=== PATIENT | female | born 1940 ===

== ENCOUNTER → 2019-02-23 | Day surgery (SDC) | payer MEDICARE, BC ==
[~2019-02-23] MED LIST: Atenolol TAB* 25 MG PO SCH; Benzocaine/Butamben/Tetracain (CETACAINE - SINGLE USE) 5 gm TOPICAL ONE; Buffered Lidocaine 1% SYRIN* 1 ML/SYRINGE INTRADERM ONE; Dexamethasone IV* 4 MG/ML 1 ML (4 MG) IV SLOW PU ONE; Dexamethasone IV* 4 MG/ML 1 ML (4 MG) ONE; Famotidine IV* 10 MG/ML 2 ML (20 mg) IV ONE; Famotidine IV* 10 MG/ML 2 ML (20 mg) ONE; Labetalol IV* 5 MG/ML 20 ML VIAL ONE; Lactated Ringers 1000 ML Bag* 1,000 ML IV SCH; Levalbuterol 0.63MG/3ML NEB* UNIT OF USE INH ONE; Lidocaine 2% PF * 5 ML VIAL ONE; Midazolam* 1 MG/ML 2 ML VIAL (2 MG) ONE; Ondansetron INJ* 2 MG/ML VIAL ONE; Propofol* 10 MG/ML 20 ML BTL ONE; fentaNYL* 50 MCG/ML 2 ML VIAL (100 MCG VIAL) ONE
--- NOTE | 2019-02-23 14:36 | CONS ---
CC: Dr. Chester Thorne; Dr. Alee Jauregui; Anesthesia * CARDIOLOGY CONSULTATION: DATE OF CONSULT: 02/23/19 [facility] REASON FOR CONSULT: Rapid heart beat and preoperative evaluation. HISTORY OF PRESENT ILLNESS: Ms. Stallings is a 78-year-old woman who is an active smoker with a lung nodule, who is scheduled for EBUS today with Dr. Jauregui. I saw her in the presence of Dr. Jauregui and Dr. Hernandez, and she was felt to be in sinus rhythm preoperatively. They took her to the operating room and she had a rapid rhythm without clear P waves at 150 beats a minute on the monitor. They are not able to either show me or print these strips and she was brought back to the preop area. The patient admits to occasional awareness of rapid heart beats or palpitations. She admits to being very anxious as well. She denies chest pain, pressure, heaviness, or any increase in her shortness of breath now or when taken to the operating room. PAST MEDICAL HISTORY: 1. The patient has a past medical history of lung mass in the left upper lobe and lingular segments and evidence of an endobronchial lesion. 2. Pleural effusion, left side. 3. Peripheral vascular disease (carotid stenosis). 4. Hypertension. 5. Type 2 diabetes. 6. Dyslipidemia. 7. Hypothyroid disease. 8. 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 MEDICATIONS: Current outpatient medications include: 1. Diovan 160 mg b.i.d., uncertain true dose as it also lists valsartan 160 mg a day. 2. Synthroid 50 mcg a day. 3. Metformin 750 mg a day. 4. Tylenol p.r.n. 5. Aspirin 81 mg a day. 6. Glucotrol 5 mg a day. ALLERGIES: Include AUGMENTIN, STATINS, NEURONTIN, WELCHOL, and ZOLOFT. FAMILY HISTORY: Positive for coronary artery disease, stroke, diabetes. SOCIAL HISTORY: The patient is an active smoker, she smokes about 4 to 5 cigarettes a day. She has a 55-year history of smoking. No history of alcohol or recreational drug abuse. No significant caffeine intake. REVIEW OF SYSTEMS: Admits to shortness of breath, coughing. Denies orthopnea or PND. Admits to occasional racing of the heart. No recent fevers, chills, or sweats. Has some recent leg swelling. She denies chest pain, pressure, or heaviness. She denies recent syncope or near syncope. All other 11-point review of systems was negative. PHYSICAL EXAM: On exam, the patient was in sinus tachycardia at 102 beats a minute, blood pressure 136/74, O2 sat 99% on nasal cannula. General Appearance : Frail, elderly woman, lying at 20 to 30 degrees, appearing a little anxious but does not appear in medical distress. Psychologically pleasant, cooperative , and admits to being nervous. Neurologically, she is hard of hearing. Otherwise, cranial nerves intact. She moves extremities well. Follows commands. Speech is articulate. No gross sensory or motor deficits. HEENT: Mucous membranes moderately moist. Neck: Strong carotid pulses 3+. I did not appreciate bruits. Breath sounds distant anteriorly and laterally. Diminished breath sounds in the left base posteriorly. Coronary: S1, S2, regular. Tachycardic. I did not appreciate murmurs. Abdomen: Active bowel sounds, soft , no hepatomegaly. Lower extremities showed trace to mild edema. DIAGNOSTIC STUDIES/LAB DATA: A 12-lead ECG today shows normal sinus rhythm, 102 beats a minute, QRS axis of -30. Normal AV and IV conduction times. Normal ST segments. Q-wave complexes leads III and aVF, variant of normal versus old infarction. Imaging was done at other facilities and not in our chart. Labs: No labs available in the [facility] chart. Point of care glucose was 211. Labs not dictated in the H and P from 02/18/19 available to me. No old EKGs available for me to compare either. IMPRESSION AND PLAN: In summary, Taylor Stallings is a 78-year-old woman, actively smoking with a lung mass, as above scheduled for EBUS, who became very tachycardic when taken to the OR with concerns on Anesthesia's part about a junctional tachycardia or possible atrial fibrillation/flutter. Currently, the patient is in sinus rhythm with PAC's/atrial bigeminy and I have no rhythm strips to document the event in the OR. Overall as the patient is hemodynamically stable and at her prior baseline now, if atrial fibrillation or flutter is the concern then I recommend proceeding with the procedure and consider giving anxiolytics before taking her back. An antiarrhythmic work up will take some time, so potential delay of care needs to be considered as well. I do not feel she needs a stress test preprocedure as her EKG does not show evidence of acute ischemia nor does she complain of angina or anginal equivalent today. The patient is a moderate- to-high risk patient for a mild-to -moderate risk procedure. For the possibility of paroxysmal atrial fibrillation/flutter, she is at high risk for this with her significant smoking history and we could continue to monitor perioperatively. If able use monitoring intraoperatively that we could save the strip to review later. Discussions with anaesthesia included lack of preoperative ECG's and labs. Per anaesthesia these aren't required in low risk procedures of which EBUS was included, but they do not consider this a low risk procedure. The decision was made to cancel the procedure today. An echo will be obtained today and labs. As an outpatient, we can get a Holter monitor and/or event monitor and she can undergo further outpatient cardiac workup as well. She does have risk of coronary artery disease with her history of smoking, diabetes, hypertension, dyslipidemia, and known peripheral vascular disease of the carotids. ADDENDUM: labs revealed low sodium: 126, this could contribute to ectopy. Differential of SIADH, paraneoplastic syndrome and more and should be evaluated and corrected. Echo showed a focal wall motion abnormality at the base of the inferior wall, EF 45-50%, mild RV hypokinesis and good valve function. The patient is following up with mn 02/25/19 8 AM. [id number]/[facility] #: [id number] MTDFrancisco
[2019-02-23 14:50] VITALS: BP 147/81
[2019-02-23 14:57] LABS: Hematocrit 35 % (35-47); Hemoglobin 11.9 g/dL (12.0-16.0); Mean Corpuscular HGB Conc 34 g/dL (31-36); Mean Corpuscular Hemoglobin 30 pg (27-31); Mean Corpuscular Volume 90 fL (80-97); Mean Platelet Volume 7.9 fL (7.4-10.4); Platelet Count 367 10^3/uL (150-450); Red Blood Count 3.93 10^6 /uL (3.70-4.87); Red Cell Distribution Width 15 % (10-15); White Blood Count 11.4 10^3/uL (3.5-10.8)
[2019-02-23 15:11] LABS: Blood Urea Nitrogen 15 mg/dL (6-24); CO2 Carbon Dioxide 22 mmol/L (22-32); Calcium 9.6 mg/dL (8.6-10.3); Chloride 98 mmol/L (101-111); EGFR African American 90.7 (>60); EGFR Non-African American 74.9 (>60); Glucose 212 mg/dL (70-100); Phosphorus 2.4 mg/dL (2.5-5.0); Sodium 126 mmol/L (135-145)
[2019-02-23 15:14] LABS: Anion Gap 6 mmol/L (2-11)
--- NOTE | 2019-02-23 21:40 | ECHO ---
*[facility]* [place] [address] Fax #: [phone] Transthoracic Echocardiogram Patient: Taylor Stallings : 1940 Study Date: 02/23/2019 Age: 78 Gender: F HR: 74 bpm Height: 60 in /152.4 cm BSA: 1.37 m^2 Weight: 95.8 lb /43.5 kg BMI: 18.7 kg/m^2 *Presiding Steward: * Jami Flores [facility] *Referring Physician: * Oxana Scott MD *Reading Physician: * Oxana Scott MD Indications: Abnormal EKG. History: Lung mass, pleural effusion. Carotid atherosclerosis. Risk factors: Current tobacco use. Hypertension. Diabetes mellitus. Dyslipidemia. Conclusions Summary: - Left ventricle: Wall thickness is mildly to moderately increased. The estimated ejection fraction is 45-50%. Hypokinesis of the basal-midinferior myocardium. Doppler parameters are consistent with elevated ventricular end-diastolic filling pressure. - Right ventricle: Systolic function is mildly reduced. - Mitral valve: There is mild regurgitation. - Tricuspid valve: There is trace regurgitation. - Aortic arch: The aortic arch is appears normal size and calcified. - Pericardium, extracardiac: There is a right pleural effusion and a left pleural effusion. - Pulmonary arteries: Systolic pressure can not be accurately estimated. - No prior echocardiogram to compare. Study data: Transthoracic echocardiogram. Procedure: Transthoracic echocardiography was performed. Image quality was fair. Complete 2D, spectral Doppler, and color flow Doppler. Location: Recovery room. Patient status: Outpatient. Patient room number: 13. Rhythm: Normal sinus rhythm with PAC's. Findings Left ventricle: The cavity size is normal. Wall thickness is mildly to moderately increased. Systolic function is mildly reduced. The estimated ejection fraction is 45-50%. Regional wall motion abnormalities: Hypokinesis of the basal-midinferior myocardium. Doppler parameters are consistent with abnormal left ventricular relaxation (grade 1 diastolic dysfunction). Doppler parameters are consistent with elevated ventricular end-diastolic filling pressure. Right ventricle: The cavity size is normal. Systolic function is mildly reduced. Left atrium: The atrium is mildly dilated. Right atrium: The atrium is normal in size. Mitral valve: The Mitral valve annulus appears calcified. The leaflets are mildly thickened. There is no evidence of stenosis. There is mild regurgitation. Aortic valve: The leaflets are mildly thickened. There is no evidence of stenosis. There is no significant regurgitation. Tricuspid valve: The leaflets are normal thickness. There is no evidence of stenosis. There is trace regurgitation. Pulmonic valve: Not well visualized. There is no significant regurgitation. Aorta: Aortic root: The aortic root is appears normal. Ascending aorta: The ascending aorta is poorly visualized. Aortic arch: The aortic arch is appears normal size and calcified. Pericardium: There is no significant pericardial effusion. There is a right pleural effusion and a left pleural effusion. Pulmonary arteries: Not well visualized. Systolic pressure can not be accurately estimated. Systemic veins: Inferior vena cava: The vessel is dilated. There is (>= 50%) respiratory change in the IVC dimension. Measurements Left ventricle Value Ref Aortic valve continued Value Ref AASHISH, LAX 3.8 cm 3.8 - 5.2 VTI, S 19.1 cm ----- ESD, LAX 2.7 cm 2.2 - 3.5 Mean grad, S 3.0 mm Hg ----- FS, LAX 31 % 27 - 45 Peak grad, S 5.0 mm Hg ----- PW, ED, LAX (H) 1.4 cm 0.6 - 0.9 EF 59 % 54 - 74 Mitral valve Value Ref E', lat mehul, TDI (L) 6.7 cm/sec >=10.0 Peak E 0.83 m/sec - ---- E/e', lat mehul, 12 Peak A 1.11 m/sec ---- - TDI Decel time 145 ms ----- E', med mehul, TDI (L) 4.0 cm/sec >=7.0 PHT 82 ms - ---- E/e', med mehul, 21 Mean grad, D 2.0 mm Hg ---- - TDI Peak grad, D 5.0 mm Hg ----- E', avg, TDI 5.4 cm/sec Peak E/A ratio 0.7 ---- - E/e', avg, TDI (H) 16 <=14 MVA, PHT 2.7 cm^2 - ---- LVOT Value Ref Pulmonic valve Value Ref Peak albertina, S 0.57 m/sec Peak v, S 0.67 m/sec ----- Mean grad, S 1 mm Hg Peak grad, S 2.0 mm Hg ----- Ventricular septum Value Ref Tricuspid valve Value Ref IVS, ED (H) 1.3 cm 0.6 - 0.9 TR peak v 2.32 m/sec <=2.8 Peak RV-RA grad, S 22 mm Hg ----- Right ventricle Value Ref AASHISH minor ax, A4C 2.1 cm 1.9 - 3.5 Aortic root Value Ref mid Root diam 3.3 cm <3.7 Pressure, S 30 mm Hg Aortic arch Value Ref Left atrium Value Ref Arch diam 1.9 cm ----- AP dim, ES 3.50 cm 2.70 - 3.80 Decending aorta Value Ref ML dim, A4C 3.3 cm Megan peak albertina 0.58 m/sec ----- SI dim, A4C 5.4 cm Vol/bsa, ES, A/L 33 ml/m^2 16 - 34 Pulmonary artery Value Ref Pressure, S 28.0 mm Hg ----- Right atrium Value Ref SI dim, ES 3.9 cm 3.4 - 5.3 Inferior vena cava Value Ref ML dim, ES, A4C 3.4 cm 2.6 - 4.4 Diam 2.2 cm ----- Estimated RAP 8 mm Hg Aortic valve Value Ref Mehul diam, ED 2.1 cm Peak v, S 1.13 m/sec Legend: (L) and (H) [place] values outside specified reference range. Prepared and electronically signed by Oxana Scott MD 02/23/2019 21:39
--- NOTE | 2019-02-24 16:48 | PN ---
Progress Note - Progress Note Date of Service: 02/23/19 - Progress note Note: Pt scheduled for bronchoscopy/EBUS under [place] Pt had irregular heart ryhthm while on monitor with SVT on rhythm strip with c/ o dizziness. Pt with tachycardia and subsequently converted to sinus. Procedure was cancelled. Cardiology was consulted. Pt had 12 lead EKG and ECHO. Pt to be rescheduled when stable
== END | disposition home or self-care (01) ==
LOC: OR 11:16
PROVIDERS: ATTEND Internal Medicine
DX: J98.4 Other disorders of lung (principal); R91.1 Solitary pulmonary nodule; I47.1 Supraventricular tachycardia; R42 Dizziness and giddiness; Z53.09 Procedure and treatment not carried out because of other contraindication; R05 Cough; J98.11 Atelectasis; E03.9 Hypothyroidism, unspecified; I10 Essential (primary) hypertension; E78.5 Hyperlipidemia, unspecified; E11.9 Type 2 diabetes mellitus without complications; Z79.84 Long term (current) use of oral hypoglycemic drugs; Z72.0 Tobacco use
CPT/HCPCS: 36415; 80048; 84100; 85027; 93306; J1100; J2250; J2405; J2704; J3010

== ENCOUNTER 2019-02-24 23:28 | Emergency (ER) | payer MEDICARE, BC ==
--- OUTSIDE RECORDS SUMMARY | 2019-02-24 23:46 | XMS REPORT | Continuity of Care Document ---
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 No Information Available Social History Type Date Description Comments Sex Unknown ETOH Use Denies alcohol use Tobacco Use Start: Unknown Patient is a current smoker, smokes every day Recreational Drug Use Denies Drug Use Tobacco Use Start: Unknown Light tobacco smoker (10 or 55 years fewer cigarettes/day) Smoking Status Reviewed: 02/18/19 Light tobacco smoker (10 or 55 years fewer cigarettes/day) Exercise Type/Frequency Does not exercise Allergies, Adverse Reactions, Alerts Active Allergies Reaction Severity Comments Date Augmentin 02/18/2019 Hydrochlorothiazide 02/18/2019 Statins 02/18/2019 Neurontin 02/18/2019 Colesevelam 02/18/2019 Zoloft 02/18/2019 Medications Active Medications SIG Qnty Indications Ordering Provider Date Diovan 1 by mouth twice Unknown 160mg Tablets a day Synthroid Take 1 Tablet By Unknown 50mcg Tablets Mouth Every Day Metformin HCL ER Take 1 Tablet By Unknown 750mg Mouth Every Day Tablets ER 24HR Tylenol 2 tablets every 4 Unknown 325mg Capsules hours as needed for pain History Medications Glucophage XR week 1 take one Alee Jauregui MD 02/18/2019 - 750mg pill daily, 02/18/2019 Tablets ER 24HR Immunizations Description No Information Available Vital Signs Date Vital Result Comment 02/18/2019 11:38am Height 60 inches 5'0" Weight 95.00 lb Heart Rate 67 /min BP Systolic Sitting 122 mmHg BP Diastolic Sitting 60 mmHg O2 % BldC Oximetry 94 % 90 with walk BMI (Body Mass Index) 18.6 kg/m2 Results Description No Information Available Procedures Description No Information Available Medical Devices Description No Information Available Encounters Type Date Location Provider Dx Diagnosis Office Visit 02/18/2019 [facility]98.4 Other disorders 12:[facility] lung [facility] R05 Cough Assessments Date Code Description Provider 02/18/2019 J98.4 Other disorders of lung Alee Jauregui MD 02/18/2019 R05 Cough Alee Jauregui MD Plan of Treatment Future Appointment(s):02/23/2019 1:00 pm - Alee Jauregui MD at [facility]02/18/2019 - Alee Jauregui MDJ98.4 Other disorders of lungNew Orders:Endobronchial Ultrasound (Ebus), Ordered: Minute Walk, Ordered: 02/18/19Follow up:1 weekR05 Cough Functional Status Description No Information Available Mental Status Description No Information Available Referrals Description No Information Available
--- NOTE | 2019-02-25 00:01 | ED ---
Shortness of Breath - HPI Summary HPI Summary: Patient is a 78 y/o F presenting to ED with complaints of SOB and exacerbated wheezing. Daughter reports that the patient has been wheezing for the past week and had a worsening of Sx today, 02/24/2019. Daughter additionally notes that the patient has had BLE edema. Patient denies pain in her legs. Daughter notes that the patient has had some dizziness the past few days as well. Daughter also states that the patient has been breathing swallowly. Patient was admitted to hospital in [place] in December for PNA. It is reported that the patient was found to have had a lung mass. There were two biopsy attempts, but both were unsuccessful. There were plans to do a bronchoscopy, but the patient had developed arrhythmias right before the patient's surgery. Her team decided not to go through with the patient's procedure as a result. She is scheduled for an appointment with cardiology tomorrow, 02/25/2019. Patient is being followed by Dr. Jauregui. Daughter notes that the patient had had issues with coughing up blood back in the winter of [id number]. There has been no such Sx with patient's current presentation, per daughter. PMHx of chronic pancreatitis is noted as well. Patient lives with daughter. On triage, pain is denied, nothing is noted to aggravate/alleviate Sx. Home medications and allergies are reviewed. - History of Current Complaint Chief Complaint: EDShortnessOfBreath Time Seen by Provider: 02/24/19 23:56 Hx Obtained From: Patient, Family/Field Manager - daughter Onset/Duration: Lasting Weeks, Still Present, Worse Since - today Current Severity: None - pain denied Aggravating Factors: Nothing Alleviating Factors: Nothing Associated Signs & Symptoms: Wheezing, Dizzy, Edema - BLE - Allergy/Home Medications Allergies/Adverse Reactions: Allergies Allergy/AdvReac Type Severity Reaction Status Date / Time amoxicillin [From Augmentin] Allergy Unknown Verified 02/26/19 02:17 Reaction Details aspirin Allergy severe gi Verified 02/26/19 02:17 upset clavulanic acid Allergy Unknown Verified 02/26/19 02:17 [From Augmentin] Reaction Details colesevelam [From WelChol] Allergy Unknown Verified 02/26/19 02:17 Reaction Details gabapentin [From Neurontin] Allergy Unknown Verified 02/26/19 02:17 Reaction Details hydrochlorothiazide Allergy Unknown Verified 02/26/19 02:17 Reaction Details sertraline [From Zoloft] Allergy Unknown Verified 02/26/19 02:17 Reaction Details Wxtdien-Ykl-Jar Reductase Allergy LOOSES Verified 02/26/19 02:17 Inhibitor HAIR, NAUSEA PMH/Surg Hx/FS Hx/Imm Hx Endocrine/Hematology History: Reports: Hx Thyroid Disease - "LOW"-ON MEDICATION FOR Cardiovascular History: Reports: Hx Coronary Artery Disease - HARDENING AROUND AORTA, Hx Hypertension - ON MEDICATION FOR, Other Cardiovascular Problems/ Disorders - MONITORING COROTID ARTERIES-DR. HERNANDEZ-PMD- [place] Respiratory History: Reports: Other Respiratory Problems/Disorders - LEFT LUNG COLLAPSED-FLUID IN LEFT LUNG GI History: Reports: Hx Gastroesophageal Reflux Disease - "BORDERLINE"-ON ORAL MEDICATION History: Denies: Other Problems/Disorders Musculoskeletal History: Denies: Other Musculoskeletal History Sensory History: Reports: Hx Cataracts - BILATERAL, Hx Contacts or Glasses - READING GLASSES Denies: Hx Hearing Aid Opthamlomology History: Reports: Hx Cataracts - BILATERAL, Hx Contacts or Glasses - READING GLASSES Neurological History: Reports: Other Neuro Impairments/Disorders - DAUGHTER REPORTS COGNITIVE ISSUES-MORE RECENTLY NOTE-LAST 6 WEEKS Psychiatric History: Reports: Hx Anxiety - HX OF- NOTED AT TIMES, Hx Depression - HX OF- NOTED AT TIMES - Surgical History Surgery Procedure, Year, and Place: 12/2018-[facility]G [facility]SIES[facility]. 2018-[facility] BIOPSIES-[facility]-TO DRAIN FLUID. TONSILLECTOMY A CHILD Hx Anesthesia Reactions: No Infectious Disease History: No Infectious Disease History: Denies: Traveled Outside the [place] in Last 30 Days - Family History Known Family History: Negative: Blood Disorder - Social History Alcohol Use: None Substance Use Type: Reports: None Smoking Status (MU): Heavy Every Day Tobacco Smoker Amount Used/How Often: 1/2 "CAL"PPD X 50+ YEARS Have You Smoked in the Last Year: Yes Review of Systems Respiratory: Other - positive - wheezing, shallow breathing; negative - coughing up blood Positive: Shortness Of Breath Musculoskeletal: Other - negative - pain in legs Positive: Edema - BLE Neurological: Other - positive - dizziness All Other Systems Reviewed And Are Negative: Yes Physical Exam - Summary Physical Exam Summary: Appearance: Well-appearing, Well-nourished, lying in bed comfortably Skin: Warm, dry, no obvious rash Eyes: Conjunctival pallor is noted; sclera anicteric ENT: mucous membranes moist, pharynx appears normal Neck: Supple, nontender Respiratory: Dullness to percussion at right chest, decreased breath sounds on the right, no signs of respiratory distress Cardiovascular: Normal S1, S2. No murmurs. Normal distal pulses in tibial and radial bilaterally. Abdomen: Soft, nontender, normal active bowel sounds present Musculoskeletal: Normal, Strength/ROM Intact Neurological: A&Ox3, awake and alert, mentation is normal, speech is fluent and appropriate Psychiatric: affect is normal, does not appear anxious or depressed Triage Information Reviewed: Yes Vital Signs On Initial Exam: Initial Vitals Temp Pulse Resp BP Pulse Ox 98.6 F 89 22 142/67 94 02/24/19 23:35 02/24/19 23:35 02/24/19 23:35 02/24/19 23:35 02/24/19 23:35 Vital Signs Reviewed: Yes Procedures - Procedure Summary Procedure Summary: After informed consent was obtained, the pt was positioned sitting on the side of the gurney and the site for thoracentesis was located using percussion. After local anesthetics, the thoracentesis needle was used to enter the chest, with adelfo clear fluid obtained, and the catheter was then advanced over the needle and the needle withdrawn, leaving the catheter in the chest. This was then connected via tubing to the evac bottles, and a total of approx 1800 cc was taken off; one bottle was sent for cytology. The patient developed some pain as the fluid was taken out and the procedure was stopped at that point, with removal of the catheter and bandage applied. Post procedure xray was unremarkable. Diagnostics - Vital Signs Vital Signs Temp Pulse Resp BP Pulse Ox 02/24/19 23:35 98.6 F 89 22 142/67 94 - Laboratory Result Diagrams: 02/25/19 00:14 02/25/19 00:14 Lab Statement: Any lab studies that have been ordered have been reviewed, and results considered in the medical decision making process. - Radiology CXR Radiology Interpretation Completed By: ED Physician Summary of Radiographic Findings: CXR showed persistent complete opacification of left hemithorax, pending official report. - EKG 2344 Cardiac Rate: NL - rate of 88 BPM EKG Rhythm: Sinus Rhythm Ectopy: PACs Summary of EKG Findings: EKG showed sinus rhythm with rate of 88 BPM, frequent PACs, no STEMI. Course/Dx - Course Course Of Treatment: Patient is a 78 y/o F presenting to ED with complaints of SOB and exacerbated wheezing. Daughter reports that the patient has been wheezing for the past week and had a worsening of Sx today, 02/24/2019. Daughter additionally notes that the patient has had BLE edema. Patient denies pain in her legs. Daughter notes that the patient has had some dizziness the past few days as well. Daughter also states that the patient has been breathing swallowly. Patient was admitted to hospital in [place] in December for PNA. It is reported that the patient was found to have had a lung mass. There were two biopsy attempts, but both were unsuccessful. There were plans to do a bronchoscopy, but the patient had developed arrhythmias right before the patient 's surgery. Her team decided not to go through with the patient's procedure as a result. She is scheduled for an appointment with cardiology tomorrow, 2018. Patient is being followed by Dr. Jauregui. On physical exam, conjunctival pallor is noted. Dullness to percussion at right chest, decreased breath sounds on the right noted as well. EKG showed sinus rhythm with rate of 88 BPM, frequent PACs, no STEMI. CXR showed persistent complete opacification of left hemithorax. Bloodwork was obtained, abnormal labs include WBC 11.2, Plt count 486, absolute neuts 9.4, absolute lymphs 0.9, absolute monos 0.9, sodium 126, chloride 95, BUN/creatinine ratio 25.9, glucose 231, CRP 88.7, BNP > 1300, albumin globulin ratio 0.9. Trop was negative. During ED course, patient received robitussin 100 mg 10 mg, 5 ml PO, and albuterol 2 puff IHN Q4H PRN. 0055 - Patient's case was discussed with Dr. Alexander Malone to evaluate for admission. 219 - After evaluation, Dr. uMnoz has decided to discharge the patient to home. - Diagnoses Provider Diagnoses: Lung cancer - Physician Notifications Discussed Care of Patient With: Rosa Munoz Time Discussed With Above Provider: 00:55 Instructed by Provider To: Other - 54 - Patient's case was discussed with Dr. Alexander Malone to evaluate for admission. 0220 - After evaluation, Dr. Munoz has decided to discharge the patient to home. Discharge ED - Sign-Out/Discharge Documenting (check all that apply): Patient Departure - discharge Patient Received Moderate/Deep Sedation with Procedure: No - Discharge Plan Condition: Fair Disposition: HOME Prescriptions: Albuterol HFA INHALER* [Ventolin HFA Inhaler*] 2 puff INH Q4H PRN #1 mdi PRN Reason: Sob/Wheezing ALPRAZolam TAB* [Xanax TAB*] 0.5 tab PO BEDTIME PRN #10 tab MDD 0.5 tab PRN Reason: Anxiety/Insomnia guaiFENesin/CODIEN 100MG-10MG* [Robitussin AC 100Mg-10Mg*] 5 ml PO Q6H PRN #100 ml MDD 20ml PRN Reason: Cough Referrals: Chester Hernandez MD [Primary Care Provider] - (Follow up in 3-5 days) Additional Instructions: 1. Keep your appointment with Dr. Scott for 02/25 at 8am. 2. Follow up with Dr. Jauregui 3. Return to the ER for any concerning issues. 4. Do NOT use the xanax and robitussin with codeine together. - Billing Disposition and Condition Condition: FAIR Disposition: Home - Attestation Statements Document Initiated by Yoshi: Yes Documenting Tyrellibe: JOSEPH DU Provider For Whom Yoshi is Documenting (Include Credential): NATACHA HERRERA MD Scribstephen Attestation: JOSEPH Griffin, scribed for NATACHA HERRERA MD on 02/26/19 at 0521. Scribe Documentation Reviewed: Yes Provider Attestation: The documentation as recorded by the JOSEPH velasco accurately reflects the service I personally performed and the decisions made by me, NATACHA HERRERA MD Status of Scrrosemary Document: Viewed
[2019-02-25 00:36] LABS: ABS Lymphocytes 0.9 10^3/ul (1.0-4.8); ABS Monocytes 0.9 10^3/ul (0-0.8); ABS Neutrophils 9.4 10^3/ul (1.5-7.7); Eosinophil % 0.1 %; Hematocrit 39 % (35-47); Lymphocyte % 8.2 %; Mean Corpuscular HGB Conc 33 g/dL (31-36); Mean Corpuscular Hemoglobin 30 pg (27-31); Mean Corpuscular Volume 90 fL (80-97); Mean Platelet Volume 7.8 fL (7.4-10.4); Platelet Count 486 10^3/uL (150-450); Red Blood Count 4.33 10^6 /uL (3.70-4.87); Red Cell Distribution Width 15 % (10-15); White Blood Count 11.2 10^3/uL (3.5-10.8)
[2019-02-25 00:56] LABS: Albumin 3.4 g/dL (3.2-5.2); Albumin/Globulin Ratio 0.9 (1-3); BUN/Creatinine Ratio 25.9 (8-20); C Reactive Protein 88.7 mg/L (<8.01); Calcium 9.8 mg/dL (8.6-10.3); EGFR African American 78.5 (>60); EGFR Non-African American 64.9 (>60); Globulin 3.7 g/dL (2-4); Potassium 4.4 mmol/L (3.5-5.0); Total Bilirubin 0.4 mg/dL (0.2-1.0); Total Protein 7.1 g/dL (6.4-8.9)
[2019-02-25 00:58] LABS: Troponin I 0.01 ng/mL (<0.04)
[2019-02-25] MEDS ORDERED: guaiFENesin/CODIEN 100MG-10MG* 5 ML UDC PO ONE (01:30)
[2019-02-25] MEDS ORDERED: Albuterol HFA INHALER* 8 gm MDI INH PRN (01:30)
[2019-02-25 02:21] VITALS: BP 155/82
--- NOTE | 2019-02-25 04:20 | CONS ---
CC: Dr. Chester Thorne; Dr. Jauregui; Dr. Scott * CONSULTATION REPORT: DATE OF CONSULT: 02/25/19 PRIMARY CARE PROVIDER: Dr. Chester Thorne. SENIOR FIRMWARE ENGINEER: Dr. Jauregui. PROFILER HAND: Dr. Scott. CHIEF COMPLAINT: Shortness of breath. HISTORY OF PRESENT ILLNESS: Ms. Stallings is a 78-year-old female who is scheduled to have an outpatient EBUS performed by Dr. Jauregui on 02/23/19. Unfortunately, when she was wheeled back to the emergency room, the patient was found have a markedly elevated heart rate. Dr. Scott was consulted and saw the patient in the preop area. Unfortunately, she did not have a telemetry strip to look at. It was felt that she may have been in atrial fibrillation versus a junctional tachycardia. It was felt that as the patient was hemodynamically stable and at her baseline, if atrial fibrillation or flutter was a concern, she could have proceeded with the EBUS. It was not felt that she needed a stress test pre-procedurally. It was felt that she would need an arrhythmia workup, but that would take some time and delay proceeding with the procedure. Ultimately, the procedure was canceled. She underwent a transthoracic echocardiogram, which revealed a focal wall motion abnormality at the base of the inferior wall with an EF of 45% to 50%, mild RV hypokinesis, and good valve function. The patient is due to follow up with Dr. Scott on at 8 a.m. On the evening of 02/24/19, however, the patient became much more short of breath than she had been. Her daughter provides the bulk of the history and states that she has been getting into these coughing fits. She was prescribed Tessalon; however, that has not helped. The patient also was noted to be wheezing. Because of the increased shortness of breath and wheezing, the patient's daughter brought her mom to the emergency room to be evaluated. In the ER, the patient was found have a mildly elevated white blood cell count of 11.2. This was essentially unchanged from 2 days ago. She also was hyponatremic with a sodium of 126, again unchanged from 2 days ago. By the time of my evaluation, the patient was resting comfortably in the stretcher. Her respiratory rate was around 20, her O2 saturation was in the mid 90s on room air, and her heart rate was 80 and in normal sinus rhythm. The patient states that she is feeling better now than when she first presented. PAST MEDICAL HISTORY: 1. Lung mass of the left upper lobe. 2. Left pleural effusion. 3. Peripheral vascular disease (carotid stenosis). 4. Hypertension. 5. Type 2 diabetes. 6. Dyslipidemia. 7. Hypothyroidism. 8. 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 MEDICATIONS: 1. Diovan 160 mg p.o. daily. 2. Metformin 750 mg p.o. daily. 3. Levothyroxine 50 mcg p.o. daily. 4. Tylenol 325 mg p.o. q.6 hours p.r.n. for pain. ALLERGIES: AUGMENTIN, STATINS, NEURONTIN, WELCHOL, and ZOLOFT. FAMILY HISTORY: Positive for coronary artery disease, stroke, and diabetes. SOCIAL HISTORY: The patient continues to smoke about 4 to 5 cigarettes per day. She has a 44-dmcd-alel history of smoking. She does not drink alcohol. Her daughter has been staying with her recently. REVIEW OF SYSTEMS: A complete 11-system review of systems is obtained. Pertinent positives and negatives are as per HPI and otherwise negative. PHYSICAL EXAM: Blood pressure 142/67, pulse 89, respirations 22, temp 98.6, O2 sat 94% on room air. General: The patient is a well-developed, elderly cachectic-appearing female, lying on the stretcher, in no acute distress. Cardiac: Normal S1, S2. Regular rate and rhythm. I do not appreciate any murmurs. There is no lower extremity edema. Pulmonary: Breath sounds are markedly diminished on the left, clear to auscultation on the right. Abdomen: Bowel sounds are present. Abdomen is soft, nontender, and nondistended. Musculoskeletal: There is no cyanosis or clubbing of the digits. There is full active range of motion of all 4 extremities. Skin is warm and dry. There are no rashes. Neuro: Cranial nerves II through XII are grossly intact. Sensation is intact to light touch throughout. DIAGNOSTIC STUDIES/LAB DATA: Labs: WBC 11.2, hemoglobin 13.0, hematocrit 39, platelets 486. Sodium 126, potassium 4.4, chloride 95, CO2 of 22, BUN 22, creatinine 0.85, glucose 231, lactic acid 2.0, calcium 9.8. Bilirubin 0.4, AST 15, ALT 9, alk phos 91. Troponin 0.01. CRP 88.7. BNP greater than 1300. Chest x-ray to my interpretation reveals a large left pleural effusion that fills the entire left lung cavity. Right lung is clear. EKG reveals atrial bigeminy. There are no acute ST-T wave abnormalities. ASSESSMENT AND PLAN: Ms. Stallings is a 78-year-old female, who likely has a left lung malignancy, who needs to undergo EBUS for a formal diagnosis, who presents to the emergency room with complaints of increased shortness of breath and wheezing. At this point, the patient is now comfortable after a nebulizer treatment. In speaking with the patient and her daughter, it sounds as if they are hoping for improved symptomatic control. The patient states that she has not been sleeping well at night and previously used Xanax 0.25 mg at bedtime, which helped. The patient would be happy to have another prescription for this so she can get some rest. Additionally, the Tessalon has not been helping with the cough and we talked about utilizing Robitussin-AC. The patient is willing to try this medication to see if this helps with her cough. Unfortunately, she will continue to cough due to the very large left pleural effusion and probable endobronchial lesion. The patient also does not have an inhaler and was noted to be wheezy on the day prior to this consultation. At this point, as the patient is comfortable and I do not believe that the procedure could get arranged quickly to be performed today, I offered the patient the opportunity to be discharged home with prescription for Xanax, Robitussin-AC, and an albuterol inhaler. The patient and her daughter both agree with this plan. I have made it very clear that she is not to take both the Robitussin-AC and Xanax together. The patient's daughter will need to monitor for increased drowsiness with the use of these medications. They have been instructed to return to the emergency room if she has any dramatic worsening of her shortness of breath. At this point, the patient is felt to be stable for discharge home from the emergency room with followup with Dr. Scott later today and with Dr. Jauregui to reschedule the EBUS. TIME SPENT: Forty-five minutes were spent on this consultation. [id number]/[facility] #: [id number] MTDD
== END 2019-02-25 02:20 | disposition home or self-care (01) ==
LOC: ED 23:28
DX: C34.90 Malignant neoplasm of unspecified part of unspecified bronchus or lung (principal); J90 Pleural effusion, not elsewhere classified; J98.11 Atelectasis; E11.9 Type 2 diabetes mellitus without complications; E07.9 Disorder of thyroid, unspecified; I25.10 Atherosclerotic heart disease of native coronary artery without angina pectoris; I10 Essential (primary) hypertension; K21.9 Gastro-esophageal reflux disease without esophagitis; F41.9 Anxiety disorder, unspecified; F32.9 Major depressive disorder, single episode, unspecified; F17.210 Nicotine dependence, cigarettes, uncomplicated; Z79.899 Other long term (current) drug therapy; Z79.84 Long term (current) use of oral hypoglycemic drugs; Z88.6 Allergy status to analgesic agent; Z88.1 Allergy status to other antibiotic agents; Z88.8 Allergy status to other drugs, medicaments and biological substances
CPT/HCPCS: 36415; 71046; 80053; 83605; 83880; 84484; 85025; 86140; 87040; 93005; 99283; A9270-GY

== ENCOUNTER 2019-02-26 01:44 | Emergency (ER) | payer MEDICARE, BC ==
--- NOTE | 2019-02-26 02:32 | ED ---
Shortness of Breath - HPI Summary HPI Summary: The patient is a 78 y/o F presenting to [facility] accompanied by daughter with a chief complaint of SOB with exertion since the morning of 02/25/2019. She reports that she was supposed to have a visit with her whistle punk at 0800 for edema in the bilateral feet and fluid building up on the left lung but was unable to move far as she quickly became short of breath, and then her appointment was rescheduled for 1500, but she was still unable to walk far enough without having difficulty breathing, fatigue, and dizziness. Before going to bed, she had an episode of coughing that was relieved with medication until she woke up with SOB again at 0230 this morning. She denies any appetite change. She also notes using her inhaler for her symptoms. She is not currently in pain. PMHx: collapse of left lung, hypothyroidism, CAD, HTN. Heavy every day smoker, no EtOH, no substance use. Medications and allergies reviewed. - History of Current Complaint Chief Complaint: EDExtremityLower Time Seen by Provider: 02/26/19 02:26 Hx Obtained From: Patient, Family/Dentist Attendant - daughter Onset/Duration: Gradual Onset, Lasting Days - since yesterday, Still Present Current Severity: Moderate Dyspnea At: Exertion Aggravating Factors: Other - ambulating Alleviating Factors: Other - rest, inhaler Associated Signs & Symptoms: Cough (Nonproductive), Edema - bilateral feet - Allergy/Home Medications Allergies/Adverse Reactions: Allergies Allergy/AdvReac Type Severity Reaction Status Date / Time amoxicillin [From Augmentin] Allergy Unknown Verified 02/26/19 02:17 Reaction Details aspirin Allergy severe gi Verified 02/26/19 02:17 upset clavulanic acid Allergy Unknown Verified 02/26/19 02:17 [From Augmentin] Reaction Details colesevelam [From WelChol] Allergy Unknown Verified 02/26/19 02:17 Reaction Details gabapentin [From Neurontin] Allergy Unknown Verified 02/26/19 02:17 Reaction Details hydrochlorothiazide Allergy Unknown Verified 02/26/19 02:17 Reaction Details sertraline [From Zoloft] Allergy Unknown Verified 02/26/19 02:17 Reaction Details Icdfwca-Tbc-Pmd Reductase Allergy LOOSES Verified 02/26/19 02:17 Inhibitor HAIR, NAUSEA PMH/Surg Hx/FS Hx/Imm Hx Endocrine/Hematology History: Reports: Hx Thyroid Disease - "LOW"-ON MEDICATION FOR Cardiovascular History: Reports: Hx Coronary Artery Disease - HARDENING AROUND AORTA, Hx Hypertension - ON MEDICATION FOR, Other Cardiovascular Problems/ Disorders - MONITORING COROTID ARTERIES-DR. HERNANDEZ-PMD- [place] Respiratory History: Reports: Other Respiratory Problems/Disorders - LEFT LUNG COLLAPSED-FLUID IN LEFT LUNG GI History: Reports: Hx Gastroesophageal Reflux Disease - "BORDERLINE"-ON ORAL MEDICATION History: Denies: Other Problems/Disorders Musculoskeletal History: Denies: Other Musculoskeletal History Sensory History: Reports: Hx Cataracts - BILATERAL, Hx Contacts or Glasses - READING GLASSES Denies: Hx Hearing Aid Opthamlomology History: Reports: Hx Cataracts - BILATERAL, Hx Contacts or Glasses - READING GLASSES Neurological History: Reports: Other Neuro Impairments/Disorders - DAUGHTER REPORTS COGNITIVE ISSUES-MORE RECENTLY NOTE-LAST 6 WEEKS Psychiatric History: Reports: Hx Anxiety - HX OF- NOTED AT TIMES, Hx Depression - HX OF- NOTED AT TIMES - Surgical History Surgical History: Yes Surgery Procedure, Year, and Place: 12/2018-[facility]ES[facility]. 2018-[facility]-TO DRAIN FLUID. TONSILLECTOMY A CHILD Hx Anesthesia Reactions: No Infectious Disease History: Yes Infectious Disease History: Denies: Traveled Outside the [place] in Last 30 Days - Family History Known Family History: Negative: Blood Disorder - Social History Alcohol Use: None Hx Substance Use: No Substance Use Type: Reports: None Hx Tobacco Use: Yes Smoking Status (MU): Heavy Every Day Tobacco Smoker Amount Used/How Often: 1/2 "CAL"PPD X 50+ YEARS Have You Smoked in the Last Year: Yes Review of Systems Positive: Fatigue Positive: Cough Positive: Other - Negative: changes in appetite Positive: Edema - bilateral feet Neurological: Other - dizziness All Other Systems Reviewed And Are Negative: Yes Physical Exam - Summary Physical Exam Summary: Appearance: Well-appearing, Well-nourished, lying in bed comfortably Skin: Warm, dry, no obvious rash Eyes: sclera anicteric, no conjunctival pallor ENT: mucous membranes moist, pharynx appears normal Neck: Supple, nontender Respiratory: dull depression on the entire left side of the chest, no significant respiratory distress Cardiovascular: Normal S1, S2. No murmurs. Normal distal pulses in tibial and radial bilaterally. Abdomen: Soft, nontender, normal active bowel sounds present Musculoskeletal: Mild edema in the dorsum of both feet not extending to the legs , Strength/ROM Intact Neurological: A&Ox3, awake and alert, mentation is normal, speech is fluent and appropriate Psychiatric: affect is normal, does not appear anxious or depressed Triage Information Reviewed: Yes Vital Signs On Initial Exam: Initial Vitals Temp Pulse Resp BP Pulse Ox 98.4 F 66 16 156/71 97 02/26/19 01:45 02/26/19 01:45 02/26/19 01:45 02/26/19 01:45 02/26/19 01:45 Vital Signs Reviewed: Yes Procedures - Procedure Summary Procedure Summary: Left-sided Thoracentesis: Diagnostics - Vital Signs Vital Signs Temp Pulse Resp BP Pulse Ox 02/26/19 01:45 98.4 F 66 16 156/71 97 - Laboratory Lab Statement: Any lab studies that have been ordered have been reviewed, and results considered in the medical decision making process. - Radiology CXR Radiology Interpretation Completed By: ED Physician Summary of Radiographic Findings: Complete white-out of the left hemithorax. ED physician has interpreted this report. Pending official report. Re-Evaluation - Re-Evaluation First Eval Re-Evaluation Time: 02:50 Comment: Patient experiencing pain following procedure; Morphine will be administered. Course/Dx - Course Course Of Treatment: Patient is a 78 y/o F accompanied by daughter with cc of gradual worsening SOB since yesterday morning especially with exertion and ambulation. Associated symptoms include dizziness, fatigue, and edema in BLE. Denies any appetite change. Hx of fluid on left lung with collapse. Supposed to go to [employer] today but was not feeling well. Upon physical exam, the patient appears to not be in significant respiratory distress despite exhibiting a dull depression on the entire left side of the chest and mild edema in the dorsum of both feet not extending to the legs. Chest xray reveals a complete white-out of the left hemithorax, per my interpretation. Left-sided thoracentesis performed with 2L of fluid drawn off (see procedure note). Patient is experiencing pain following procedure likely secondary to subsequent inflation of the left lung with noted improvement of aeration. She will be administered Morphine. She is diagnosed with left pleural effusion. Patient and her daughter understand and agree with discharge plan for continuing medication. - Diagnoses Provider Diagnoses: Pleural effusion, left Discharge ED - Sign-Out/Discharge Documenting (check all that apply): Patient Departure - Patient will be discharged home. Patient Received Moderate/Deep Sedation with Procedure: No - Discharge Plan Condition: Good Disposition: HOME Patient Education Materials: Weakness (ED) Referrals: Alee Jauregui MD [Medical Doctor] - 2 Days Additional Instructions: Continue your current medication. I am hoping that taking off some of the fluid will provide a small degree of temporary improvement for you. - Billing Disposition and Condition Condition: GOOD Disposition: Home - Attestation Statements Document Initiated by Yoshi: Yes Documenting Scribe: Tanya Caro Provider For Whom Yoshi is Documenting (Include Credential): Dr. Cliff Whitt MD Scribe Attestation: I, patricio Rodriguzeed for Dr. Cliff Whitt MD on 02/26/19 at 0611. Scribe Documentation Reviewed: Yes Provider Attestation: The documentation as recorded by the Tanya velasco accurately reflects the service I personally performed and the decisions made by me, Dr. Cliff Whitt MD Status of Scribe Document: Viewed
[2019-02-26] MEDS: Morphine 4 MG/ML VIAL (1 ml) 4 MG/ML VIAL IV PRN ×2 (03:13→03:45)
[2019-02-26 05:10] VITALS: BP 108/49
== END 2019-02-26 05:08 | disposition home or self-care (01) ==
LOC: ED 01:44
DX: J90 Pleural effusion, not elsewhere classified (principal); E03.9 Hypothyroidism, unspecified; I25.10 Atherosclerotic heart disease of native coronary artery without angina pectoris; I10 Essential (primary) hypertension; K21.9 Gastro-esophageal reflux disease without esophagitis; F17.200 Nicotine dependence, unspecified, uncomplicated; Z79.84 Long term (current) use of oral hypoglycemic drugs; Z79.899 Other long term (current) drug therapy; Z88.6 Allergy status to analgesic agent; Z88.1 Allergy status to other antibiotic agents; Z88.8 Allergy status to other drugs, medicaments and biological substances
CPT/HCPCS: 71045; 88112; 88341; 88342; 96374; 99283; J2270